=== PATIENT | female | born 1975 | race Caucasian/White ===

== ENCOUNTER 2017-02-18 21:58 | Inpatient (IN) ==
[2017-02-18 19:37] LABS: MANUAL DIFF NEEDED? NO
[2017-02-18 19:38] LABS: URINE CULTURE NEEDED? NO; URINE SOURCE CLEAN CATCH
[2017-02-18 19:41] LABS: BASO% 0.2 % (0.0-0.8); EOS# 0.13 X1000 (0.0-0.7); EOS% 2.3 % (0.0-10.0); HEMATOCRIT 42.9 % (37.0-47.0); HEMOGLOBIN 14.8 g/dL (12.0-16.0); IMM GRAN# 0.02 X1000 (0.0-0.04); IMM GRAN% 0.4 % (0.0-0.5); LYMPH# 1.04 X1000 (1.2-3.4); LYMPH% 18.5 % (20.5-51.1); MCH 34.1 PG (27-31); MCHC 34.5 g/dL (33-37); MCV 98.8 FL (81-99); MONO# 0.33 X1000 (0.11-0.59); MONO% 5.9 % (1.7-9.3); MPV 9.3 FL (7.4-10.4); NEUT% 72.7 % (42.2-75.2); PLT 278 X1000 (130-400); RBC 4.34 XMIL (4.2-5.4)
[2017-02-18 19:52] LABS: BILIRUBIN URINE MODERATE (NEGATIVE); BLOOD URINE TRACE (NEGATIVE); COLOR ORANGE; GLUCOSE URINE TRACE mg/dL (NEGATIVE); LEUKOCYTES URINE NEGATIVE (NEGATIVE); NITRITE URINE NEGATIVE (NEGATIVE); PH URINE 6.5; PROTEIN URINE 100 mg/dL (NEGATIVE); SP GRAVITY URINE 1.033; TURBIDITY URINE HAZY (CLEAR); UROBILINOGEN URINE 6 mg/dL (NORMAL)
[2017-02-18 19:57] LABS: UR EPITHELIAL CELLS >10 /HPF (<10); URINE BACTERIA NEGATIVE /HPF; URINE MICRO REVIEW NEEDED? YES; URINE RBC <10 /HPF (<10)
[2017-02-18 19:58] LABS: URINE CASTS NONE SEEN; URINE CRYSTALS NONE SEEN; URINE SMALL ROUND CELLS NONE SEEN
[2017-02-18 20:02] LABS: AGAP 14; ALBUMIN 3.6 g/dL (3.5-5.0); ALKALINE PHOSPHATASE 248 U/L (32-104); AMYLASE 74 U/L (20-200); BUN 6 mg/dL (8-22); CALCIUM 9.6 mg/dL (8.8-10.2); CHLORIDE 97 mmol/L (98-107); COSMO 275; GOT 504 U/L (10-30); GPT 162 U/L (10-36); LIPASE 106 U/L (13-60); POTASSIUM 3.1 mmol/L (3.5-5.1); SODIUM 139 mmol/L (136-145); TCO2 28 mmol/L (25-35); TOTAL BILIRUBIN 2.64 mg/dL (0.20-1.00); TOTAL PROTEIN 7.5 g/dL (6.3-8.3)
[2017-02-19] MEDS: ZOFRAN IV PRN ×3 (04:35→21:48)
[2017-02-19] MEDS: MORPHINE IV PRN ×2 (04:38→09:07)
[2017-02-19] MEDS ORDERED: RELISTOR SUBQ ONE (10:56)
[2017-02-19] MEDS ORDERED: MIRALAX PO ONE (10:57)
[2017-02-19] MEDS: NS 1,000 ML IV SCH ×2 (11:35→23:24)
[2017-02-19] MEDS: DILAUDID IV PRN ×4 (11:40→21:49)
[2017-02-19 11:42] LABS: AGAP 12; ALBUMIN 3.2 g/dL (3.5-5.0); ALKALINE PHOSPHATASE 179 U/L (32-104); BUN 6 mg/dL (8-22); CALCIUM 8.5 mg/dL (8.8-10.2); CHLORIDE 101 mmol/L (98-107); COSMO 277; GOT 115 U/L (10-30); GPT 87 U/L (10-36); POTASSIUM 2.9 mmol/L (3.5-5.1); SODIUM 141 mmol/L (136-145); TCO2 28 mmol/L (25-35); TOTAL PROTEIN 5.9 g/dL (6.3-8.3)
[2017-02-19] MEDS: PROTONIX IV SCH (14:27)
[2017-02-19] MEDS: NICODERM PATCH TD SCH (14:27)
[2017-02-19] MEDS: SODIUM CHLORIDE 0.9% INJ SCH (14:28)
[2017-02-19] MEDS ORDERED: MAGNESIUM SULFATE 2 GM/S.W.I. 2 GM/50 ML IVPB IV ONE (16:27)
[2017-02-19] MEDS: BENADRYL IV PRN ×2 (17:31→21:48)
[2017-02-19] MEDS: POTASSIUM CHLORIDE 20 MEQ/SWI 20 MEQ/100 ML IVPB IV SCH ×2 (17:40→21:49)
[2017-02-19] MEDS: DULCOLAX PR SCH (21:47)
[2017-02-19] MEDS: MIRALAX PO SCH (21:48)
[2017-02-20] MEDS: PROTONIX IV SCH ×4 (00:50→23:48)
[2017-02-20] MEDS: SODIUM CHLORIDE 0.9% INJ SCH ×3 (00:50→23:48)
[2017-02-20] MEDS: DILAUDID IV PRN ×6 (02:18→23:48)
[2017-02-20] MEDS: ZOFRAN IV PRN ×6 (02:19→23:48)
[2017-02-20] MEDS: BENADRYL IV PRN ×4 (02:19→23:47)
[2017-02-20 06:44] LABS: MANUAL DIFF NEEDED? NO
[2017-02-20 06:49] LABS: BASO% 0.2 % (0.0-0.8); EOS# 0.32 X1000 (0.0-0.7); EOS% 4.9 % (0.0-10.0); HEMATOCRIT 36.4 % (37.0-47.0); HEMOGLOBIN 12.2 g/dL (12.0-16.0); LYMPH# 1.45 X1000 (1.2-3.4); LYMPH% 22.2 % (20.5-51.1); MCH 34.1 PG (27-31); MCHC 33.5 g/dL (33-37); MCV 101.7 FL (81-99); MONO# 0.45 X1000 (0.11-0.59); MONO% 6.9 % (1.7-9.3); MPV 9.3 FL (7.4-10.4); NEUT% 65.8 % (42.2-75.2); PLT 221 X1000 (130-400); RBC 3.58 XMIL (4.2-5.4)
[2017-02-20 07:20] LABS: AGAP 10; AMYLASE 42 U/L (20-200); BUN 6 mg/dL (8-22); CHLORIDE 105 mmol/L (98-107); COSMO 279; LIPASE 37 U/L (13-60); POTASSIUM 3.8 mmol/L (3.5-5.1); SODIUM 141 mmol/L (136-145); TCO2 26 mmol/L (25-35)
[2017-02-20] MEDS: NICODERM PATCH TD SCH (08:44)
[2017-02-20] MEDS ORDERED: NICODERM PATCH TD SCH (09:00)
[2017-02-20] MEDS: MIRALAX PO SCH ×2 (09:55→20:30)
[2017-02-20] MEDS: NS 1,000 ML IV SCH (09:56)
[2017-02-20 16:59] LABS: AMYLASE 47 U/L (20-200); LIPASE 59 U/L (13-60)
[2017-02-20 17:03] LABS: AGAP 11; ALBUMIN 2.9 g/dL (3.5-5.0); ALKALINE PHOSPHATASE 138 U/L (32-104); BUN 5 mg/dL (8-22); CALCIUM 8.3 mg/dL (8.8-10.2); CHLORIDE 101 mmol/L (98-107); COSMO 272; GOT 30 U/L (10-30); GPT 44 U/L (10-36); POTASSIUM 3.3 mmol/L (3.5-5.1); SODIUM 138 mmol/L (136-145); TCO2 26 mmol/L (25-35); TOTAL BILIRUBIN 0.63 mg/dL (0.20-1.00)
[2017-02-20 17:53] LABS: HDL 29 mg/dL (45-65); LDL 110 mg/dL; TRIGLYCERIDES 178 mg/dL (35-135); VLDL 36 mg/dL
[2017-02-20] MEDS: DULCOLAX PR SCH (20:30)
[2017-02-21] MEDS: PROTONIX IV SCH ×2 (00:40→14:15)
[2017-02-21] MEDS: DILAUDID IV PRN ×3 (03:16→16:13)
[2017-02-21] MEDS: BENADRYL IV PRN ×4 (03:18→16:23)
[2017-02-21] MEDS: ZOFRAN IV PRN ×4 (03:19→16:21)
[2017-02-21 07:08] LABS: MANUAL DIFF NEEDED? NO
[2017-02-21 07:30] LABS: BASO% 0.2 % (0.0-0.8); EOS# 0.28 X1000 (0.0-0.7); EOS% 5.4 % (0.0-10.0); HEMATOCRIT 38.7 % (37.0-47.0); HEMOGLOBIN 12.8 g/dL (12.0-16.0); LYMPH# 1.54 X1000 (1.2-3.4); LYMPH% 29.6 % (20.5-51.1); MCH 33.8 PG (27-31); MCHC 33.1 g/dL (33-37); MCV 102.1 FL (81-99); MONO# 0.41 X1000 (0.11-0.59); MONO% 7.9 % (1.7-9.3); MPV 9.5 FL (7.4-10.4); NEUT% 56.9 % (42.2-75.2); PLT 236 X1000 (130-400); RBC 3.79 XMIL (4.2-5.4)
[2017-02-21 08:09] VITALS: BP 151/94
[2017-02-21] MEDS: MIRALAX PO SCH (10:08)
[2017-02-21] MEDS: NICODERM PATCH TD SCH (10:08)
[2017-02-21] MEDS: NS 1,000 ML IV SCH (12:16)
[2017-02-22 10:16] LABS: HEPATITIS PROFILE ACUTE SEE COMMENTS
== END 2017-02-21 18:01 | disposition home or self-care (01) ==
LOC: SUATTDRO 02-19 03:11 → 3N 02-19 03:11
PROVIDERS: ATTEND Emergency Medicine